=== PATIENT | female | born 1970 | race Caucasian/White ===

== ENCOUNTER → 2016-10-26 | Outpatient (CLI) | payer OTHER ==
--- NOTE | 2016-10-26 16:45 | US ---
EXAMINATION TYPE: US venous doppler duplex LE BI DATE OF EXAM: 10/26/2016 2:31 PM COMPARISON: NONE CLINICAL HISTORY: 45-year-old female R60.9. SIDE PERFORMED: Bilateral TECHNIQUE: The bilateral lower extremity deep venous system is examined utilizing real time linear a rray sonography with graded compression, doppler sonography and color-flow sonography. VESSELS IMAGED: External Iliac Vein (EIV) Common Femoral Vein Deep Femoral Vein Greater Saphenous Vein * Femoral Vein Popliteal Vein Small Saphenous Vein * Proximal Calf Veins (* superficial vessels) Right Leg: Negative for DVT Left Leg: Negative for DVT 4.6 x 1.8 cm area of ill-defined echogenicity suggestive of Cardenas's cyst in the right popliteal fossa . IMPRESSION: 1. No evidence of DVT within the bilateral lower extremities imaged from the groin to the upper calve s. 2. 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 This can be confirmed with knee MRI as clinically indicated.
--- NOTE | 2016-10-26 20:36 | MR ---
EXAMINATION TYPE: MR lumbar spine wo con DATE OF EXAM: 10/26/2016 1:31 PM COMPARISON: NONE HISTORY: 45-year-old female low back pain, radiculopathy, DDD TECHNIQUE: Multiplanar, multisequence images of the lumbar spine were acquired. FINDINGS: There is splenomegaly and pelvic ascites fluid noted. Vertebral body heights are preserved. There is facet degenerative change in the mid to lower lumbar spine with grade 1 retrolisthesis at L4 -L5. There is an interbody ankylosis at L5-S1 with disc osteophyte complex formation. Ligamentum flavum thickening throughout and degenerative disc disease with disc desiccation especiall y at L3-L4 and L4-L5 with scattered mixed Modic type I and type II endplate change at these levels. Bulging disks throughout. Conus medullaris is normal. At T12-L1, minimal diffuse disc bulge without canal or foraminal stenosis. At L1-L2, minimal diffuse disc bulge without canal or foraminal stenosis. At L2-L3, there is mild diffuse disc bulge and mild facet degenerative change. No significant canal o r foraminal stenosis. At L3-L4, there is diffuse disc bulge with hypertrophic facet arthropathy. Changes result in mild zhane rowing of the spinal canal with mild right and minimal inferior left neural foraminal stenosis. At L4-L5, diffuse disc bulge with hypertrophic facet arthropathy and ligamentum flavum thickening as well as prominent dorsal epidural fat and trace grade 1 retrolisthesis. Changes circumferentially att enuates the thecal sac without significant spinal canal stenosis. The changes result in moderate bila teral neuroforaminal stenosis. Disc material closely approaches and may impinge the traversing right L5 nerve root. At L5-S1, there is a degenerative appearing interbody ankylosis with a large right paracentral disc o steophyte complex which approaches and may abut the traversing right S1 nerve root. There is moderate to severe right greater than left neuroforaminal stenosis without spinal canal stenosis. IMPRESSION: 1. Degenerative appearing interbody ankylosis at L5-S1. A large right paracentral osteophytic spur ma y abut the traversing right S1 nerve root here. There is also moderate to severe right greater than l eft neuroforaminal stenosis at this level. 2. Multilevel facet arthropathy as well as ligamentum flavum thickening and moderate degenerative dis c disease especially in the mid to lower lumbar spine. 3. Degenerative grade 1 retrolisthesis at L4-L5. 4. Changes result in mild spinal canal stenosis at L3-L4. 5. Moderate bilateral neuroforaminal stenosis at L4-L5. Disc material approaches and may impinge the traversing right L5 nerve root at this level. 6. Splenomegaly and pelvic ascites fluid.
--- NOTE | 2016-10-28 17:25 | US ---
EXAMINATION TYPE: US abdomen complete DATE OF EXAM: 10/26/2016 2:07 PM COMPARISON: NONE CLINICAL HISTORY: 45-year-old female K74.60. Unspecified cirrhosis of liver. TECHNIQUE: Multiple sonographic images of the abdomen were obtained. FINDINGS: EXAM MEASUREMENTS: Liver Length: 16.5 cm Gallbladder: Surgically absent CBD: 1.0 cm Spleen: 15.60 cm Right Kidney: 10.2 x 4.6 x 4.6 cm Left Kidney: 9.8 x 4.2 x 5.5 cm Incidentally, large caliber to the splenic vein at 1.3 cm. Mild perisplenic free fluid. Greater degree of mild perihepatic ascites fluid. Color Doppler and spectral waveform images suggest hepatofugal portal venous flow which needs to be c onfirmed as the kiln charger comments that there is hepatopedal flow. Pancreas: Suboptimal visualization of the pancreatic head and tail secondary to shadowing from bowel gas. Liver: Increased echogenicity with subtle nodular contour. No focal lesion seen. Gallbladder: Surgically absent CBD: Within normal limits postcholecystectomy status. Spleen: Enlarged. Right Kidney: No hydronephrosis Left Kidney: No hydronephrosis Upper IVC: wnl Abd Aorta: bifurcation obscured by overlying bowel gas ENGRAVER BLOCK NOTES: Mild ascites, hepatopedal flow in portal vein IMPRESSION: 1. Cirrhotic morphology of the liver. No sonographic evidence for hepatoma. 2. Portal venous hypertension (large caliber to the splenic vein, splenomegaly, and mild upper abdomi nal ascites). 3. Questionable flow direction reversal in the portal vein suggesting significant portal venous hyper tension. This needs to be confirmed. The patient will be called back to reassess at no charge. 4. Enlarged caliber to the bile duct is within normal limits postcholecystectomy.
== END | disposition home or self-care (01) ==
LOC: RADMRIMAIN 12:51
PROVIDERS: ATTEND Physician Assistant
DX: M51.36 Other intervertebral disc degeneration, lumbar region (principal); M54.15 Radiculopathy, thoracolumbar region; M48.06 Spinal stenosis, lumbar region
CPT/HCPCS: 72148; 76700; 93970

== ENCOUNTER → 2016-11-29 | Outpatient (CLI) | payer OTHER ==
--- NOTE | 2016-11-30 12:02 | ECHOF ---
Referral Reason:Hypertension I10, COPD J44.1 MEASUREMENTS -------- HEIGHT: 167.6 cm WEIGHT: 83.0 kg BP: 117/66 RVIDd: 2.9 cm (< 3.3) IVSd: 1.0 cm (0.6 - 1.1) LVIDd: 4.6 cm (3.9 - 5.3) LVPWd: 1.0 cm (0.6 - 1.1) IVSs: 1.4 cm LVIDs: 3.0 cm LVPWs: 1.6 cm LA Diam: 3.6 cm (2.7 - 3.8) LAESV Index (A-L): 32.85 ml/m Ao Diam: 2.7 cm (2.0 - 3.7) AV Cusp: 2.0 cm (1.5 - 2.6) MV EXCURSION: 17.918 mm (> 18.000) MV EF SLOPE: 108 mm/s (70 - 150) EPSS: 0.3 cm MV E Howie: 1.33 m/s MV DecT: 284 ms MV A Howie: 0.66 m/s MV E/A Ratio: 2.02 RAP: 5.00 mmHg RVSP: 22.27 mmHg FINDINGS -------- Sinus rhythm. This was a technically good study. The left ventricular size is normal. Left ventricular wall thickness is normal. Overall left ventricular systolic function is normal with, an EF between 60 - 65 %. The right ventricle is normal in size and function. LA is midly dilated 29-33ml/m2. The right atrium is normal in size. The aortic valve is trileaflet and appears structurally normal. The mitral valve leaflets are mildly thickened. Mild mitral annular calcification present. There is trace to mild mitral regurgitation. Mild tricuspid regurgitation present. Right ventricular systolic pressure is normal at < 35 mmHg. Trace/mild (physiologic) pulmonic regurgitation. The aortic root size is normal. The inferior vena cava is mildly dilated. The pericardium is normal. CONCLUSIONS -------- 1. Sinus rhythm. 2. The mitral valve leaflets are mildly thickened. 3. Mild mitral annular calcification present. 4. There is trace to mild mitral regurgitation. 5. Mild tricuspid regurgitation present. 6. Right ventricular systolic pressure is normal at < 35 mmHg. 7. Trace/mild (physiologic) pulmonic regurgitation. 8. The aortic root size is normal. 9. The inferior vena cava is mildly dilated. 10. The pericardium is normal. 11. This was a technically good study. 12. The left ventricular size is normal. 13. Left ventricular wall thickness is normal. 14. Overall left ventricular systolic function is normal with, an EF between 60 - 65 %. 15. The right ventricle is normal in size and function. 16. LA is midly dilated 29-33ml/m2. 17. The right atrium is normal in size. 18. The aortic valve is trileaflet and appears structurally normal. SCHOOL ADMISSIONS REPRESENTATIVE: Chichi Encinas RDCS
== END | disposition home or self-care (01) ==
LOC: RADECHMAIN 14:22
PROVIDERS: ATTEND Physician Assistant
DX: I08.1 Rheumatic disorders of both mitral and tricuspid valves (principal); R60.9 Edema, unspecified; K76.6 Portal hypertension; J44.9 Chronic obstructive pulmonary disease, unspecified
CPT/HCPCS: 93306